=== PATIENT | male | born 1975 | race African-American/Black ===

== ENCOUNTER 2020-07-28 11:45 | Inpatient (IN) | payer OTHER ==
[~2020-07-28] VITALS: Ht 170.2 cm; Wt 85.3 kg
[2020-07-28] MEDS ORDERED: ULTRAM50 MG PO (14:30)
[2020-08-08] MEDS ORDERED: ULTRAM50 MG PO (09:29)
== END 2020-08-08 11:52 | DRG 330 ==
LOC: O/R 08-04 07:50 → SURG 08-04 07:50 → SURH 08-04 10:00 → SURG 08-04 16:11
PROVIDERS: ADMIT Surgery; ATTEND Surgery
PROC: 0DTN4ZZ Resection of Sigmoid Colon, Percutaneous Endoscopic Approach (ICD-10-PCS; principal; 2020-08-04 10:00)
DX: K57.20 Diverticulitis of large intestine with perforation and abscess without bleeding (principal); N32.1 Vesicointestinal fistula; K59.09 Other constipation